=== PATIENT | male | born 1985 | race Caucasian/White ===

== ENCOUNTER 2018-07-22 12:30 | Emergency (ER) | payer OTHER ==
[~2018-07-22] VITALS: Ht 185.4 cm; Wt 113.4 kg
[2018-07-22] MEDS ORDERED: CLEOCIN HCL150 MG PO (12:50)
[2018-07-22 13:23] VITALS: BP 114/73
== END 2018-07-22 13:30 | disposition home or self-care (01) ==
LOC: M.ERS 12:30
DX: H60.01 Abscess of right external ear (principal); Z86.14 Personal history of Methicillin resistant Staphylococcus aureus infection